=== PATIENT | male | born 1970 | race Caucasian/White ===

== ENCOUNTER 2024-08-23 12:48 | Inpatient (IN) | payer MEDICAID ==
[~2024-08-23] VITALS: Ht 165.1 cm; Wt 85.7 kg
[2024-08-23 13:25] LABS: BASOPHILS % 0.2 % (0.0-2.0); HEMATOCRIT. 32.8 % (42.0-52.0); HEMOGLOBIN. 10.9 g/dL (14.0-18.0); LYMPHOCYTES % 24.9 % (20.0-50.0); MEAN CORPUSCULAR HEMOGLOBIN 36.4 pg (28.0-32.0); MEAN CORPUSCULAR HGB CONC 33.2 g/dL (31.0-37.0); MEAN CORPUSCULAR VOLUME 109.8 fL (80.0-94.0); MONOCYTES % 7.7 % (2.0-8.0); NEUTROPHILS % 66.2 % (40.0-76.0); RED BLOOD CELL COUNT 2.98 mill/uL (4.7-6.1); RED CELL DISTRIBUTION WIDTH 15.3 % (11.6-14.6); WHITE BLOOD COUNT 6.2 x1000/uL (4.5-11.0)
[2024-08-23 13:30] LABS: CHLORIDE 108 mEq/L (98-107); POTASSIUM 6.1 mEq/L (3.5-5.1); SODIUM 133 mEq/L (136-145)
[2024-08-23 13:31] LABS: CALCIUM 8.8 mg/dL (8.7-10.4); CARBON DIOXIDE 20 mEq/L (21-32)
[2024-08-23 13:36] LABS: CREATININE 1.1 mg/dL (0.6-1.3); GLUCOSE 105 mg/dL (70-105); UREA NITROGEN BLOOD 30 mg/dL (9-23)
[2024-08-23 13:38] LABS: AMMONIA 69 uMol/L (<32); ETHANOL BLOOD < 10 mg/dL (<10)
[2024-08-23] MEDS ORDERED: FUROSEMIDE 100MG/10ML VIAL IV STA (13:47)
[2024-08-23] MEDS: CALCIUM CHLORIDE 1GM/10ML SYR IV ONE (14:17)
[2024-08-23] MEDS: INSULIN REGULAR (HUMULIN R) 1000UNITS/10ML VIAL IV ONE (14:18)
[2024-08-23 14:19] LABS: DIFFERENTIAL COMMENT 1
[2024-08-23] MEDS: DEXTROSE 50% WATER 50ML SYRINGE IV ONE (14:19)
[2024-08-23] MEDS: FUROSEMIDE 40MG/4ML VIAL IV NR (14:58)
[2024-08-23 15:05] VITALS: PULSE 67; RESP 20; O2SAT 100
[2024-08-23] MEDS: ALBUTEROL (0.083%) 2.5MG/3ML NEB HHN ONE (15:05)
[2024-08-23 15:18] LABS: MEAN PLATELET VOLUME 7.2 fl (7.4-10.4); PLATELET 108 x1000/uL (130-400)
[2024-08-23] MEDS ORDERED: DOCUSATE SODIUM 100MG CAPSULE PO PRN (16:15)
[2024-08-23] MEDS ORDERED: IPRATROPIUM/ALBUTEROL 0.5-3(2.5)MG/3ML NEB HHN PRN (16:15)
[2024-08-23] MEDS ORDERED: ACETAMINOPHEN 325MG TABLET PO PRN ×2 (16:15)
[2024-08-23] MEDS ORDERED: GUAIFENESIN 200MG/10ML SUGAR FREE UDC PO PRN (16:15)
[2024-08-23] MEDS ORDERED: CLONIDINE 0.1MG TABLET PO PRN (16:15)
[2024-08-23] MEDS ORDERED: MAGNESIUM/ALUMINUM HYDROXIDE/SIMETHICONE 30ML UDC PO PRN (16:15)
[2024-08-23] MEDS ORDERED: HYDROCODONE/ACETAMINOPHEN 5/325MG TABLET PO PRN (16:15)
[2024-08-23] MEDS ORDERED: ONDANSETRON HCL 4MG/2ML INJ IV PRN (16:15)
[2024-08-23] MEDS: SODIUM CHLORIDE 0.9% 1,000 ML IV ONE (16:23)
[2024-08-23] MEDS ORDERED: CEFTRIAXONE 500 MG in DEXTROSE 5% WATER 50 ML IV SCH (16:30)
[2024-08-23] MEDS: ENOXAPARIN 40MG/0.4ML SYR SUBCUT SCH (16:48)
[2024-08-23] MEDS: MIDODRINE HCL 5MG TABLET PO SCH (16:48)
[2024-08-23] MEDS: CEFTRIAXONE 1GM/50ML 50ML IV SCH (16:49)
[2024-08-23 16:50] LABS: CHLORIDE 108 mEq/L (98-107); POTASSIUM 4.4 mEq/L (3.5-5.1); SODIUM 136 mEq/L (136-145)
[2024-08-23 16:51] LABS: CARBON DIOXIDE 20 mEq/L (21-32)
[2024-08-23 16:52] LABS: CALCIUM 9.5 mg/dL (8.7-10.4)
[2024-08-23 16:56] LABS: CREATININE 1.1 mg/dL (0.6-1.3); GLUCOSE 106 mg/dL (70-105); IRON 186 ug/dL (65-175); UREA NITROGEN BLOOD 35 mg/dL (9-23)
[2024-08-23 16:58] LABS: ALANINE AMINOTRANSFERASE 26 IU/L (10-49); ALBUMIN 2.4 g/dL (3.2-4.8); ASPARTATE AMINOTRANSFERASE 53 IU/L (<34); TOTAL IRON BINDING CAPACITY 200 ug/dl (250-425)
[2024-08-23 16:59] LABS: AMMONIA 60 uMol/L (<32); BILIRUBIN DIRECT 1.6 mg/dL (<=3.0); BILIRUBIN TOTAL 5.3 mg/dL (0.1-1.0); PROTEIN TOTAL 7.7 g/dL (6.0-8.3)
[2024-08-23 17:01] LABS: FERRITIN 286 ng/mL (22-322); FOLIC ACID (FOLATE) SERUM > 20.00 ng/mL (>5.38)
[2024-08-23 17:05] LABS: CLARITY URINE CLEAR (CLEAR); COLOR URINE YELLOW (YELLOW); GLUCOSE URINE NEGATIVE (NEGATIVE); KETONES URINE NEGATIVE (NEGATIVE); LEUKOCYTE ESTERASE URINE NEGATIVE (NEGATIVE); NITRITE URINE NEGATIVE (NEGATIVE); OCCULT BLOOD URINE NEGATIVE (NEGATIVE); PROTEIN URINE NEGATIVE (NEGATIVE); SPECIFIC GRAVITY URINE 1.006 (1.005-1.030); UROBILINOGEN URINE 0.2 E.U./dL (0.2-1.0)
[2024-08-23 17:17] LABS: INR 1.3; PROTHROMBIN TIME 14.6 sec (9.6-11.0)
[2024-08-23 17:18] LABS: VITAMIN B12 SERUM > 2000 pg/mL (211-911)
[2024-08-23] MEDS ORDERED: OCTREOTIDE 1,000 MCG in SODIUM CHLORIDE 0.9% 98 ML IV SCH (17:30)
[2024-08-23 17:47] LABS: *AMPHETAMINES SCREEN URINE NEGATIVE (NEGATIVE); *BARBITURATES SCREEN URINE NEGATIVE (NEGATIVE); *COCAINE SCREEN URINE NEGATIVE (NEGATIVE)
[2024-08-23 17:48] LABS: *BENZODIAZEPINES SCREEN URINE NEGATIVE (NEGATIVE); CANNABINOID URINE SCREEN NEGATIVE (NEGATIVE); ECSTASY MDMA SCREEN URINE NEGATIVE (NEGATIVE); METHADONE URINE SCREEN NEGATIVE (NEGATIVE); OPIATES URINE SCREEN NEGATIVE (NEGATIVE); PHENCYCLIDINE URINE SCREEN NEGATIVE (NEGATIVE)
[2024-08-23] MEDS: AZITHROMYCIN 500MG/250ML 250 ML IV SCH (18:37)
[2024-08-23] MEDS: OCTREOTIDE 1,000 MCG in SODIUM CHLORIDE 0.9% 98 ML IV SCH (19:18)
[2024-08-23 20:23] LABS: LACTIC ACID 2.3 mmol/L (0.4-2.0)
[2024-08-23] MEDS: FUROSEMIDE 40MG/4ML VIAL IV SCH (21:00)
[2024-08-23] MEDS: CARVEDILOL 3.125 MG TABLET PO SCH (21:00)
[2024-08-24] MEDS: LACTULOSE 20G/30ML UDC PO SCH (00:47)
[2024-08-24 02:26] VITALS: BP 96/52; RESP 16; TEMP 36.33624; O2SAT 99
[2024-08-24] MEDS: FOLIC ACID/VITAMIN B COMP W-C TABLET PO SCH (09:25)
[2024-08-24 09:29] LABS: HEMATOCRIT. 28.6 % (42.0-52.0); HEMOGLOBIN. 9.7 g/dL (14.0-18.0); MEAN CORPUSCULAR VOLUME 108.8 fL (80.0-94.0); MEAN PLATELET VOLUME 7.4 fl (7.4-10.4); PLATELET 91 x1000/uL (130-400); RED BLOOD CELL COUNT 2.62 mill/uL (4.7-6.1); RED CELL DISTRIBUTION WIDTH 14.8 % (11.6-14.6); WHITE BLOOD COUNT 4.3 x1000/uL (4.5-11.0)
[2024-08-24 09:30] LABS: CHLORIDE 111 mEq/L (98-107); POTASSIUM 4.8 mEq/L (3.5-5.1); SODIUM 137 mEq/L (136-145)
[2024-08-24 09:31] LABS: CALCIUM 8.8 mg/dL (8.7-10.4); CARBON DIOXIDE 21 mEq/L (21-32)
[2024-08-24 09:32] LABS: DIFFERENTIAL COMMENT 1
[2024-08-24 09:36] LABS: GLUCOSE 109 mg/dL (70-105); TRIGLYCERIDE 46 mg/dL (0-150)
[2024-08-24 09:37] LABS: LDL CHOLESTEROL 49 mg/dL (5-100); UREA NITROGEN BLOOD 32 mg/dL (9-23)
[2024-08-24 09:38] LABS: CHOLESTEROL 102 mg/dL (<200); CREATINE KINASE 33 IU/L (46-171); HDL CHOLESTEROL < 20 mg/dL (>55)
[2024-08-24 09:41] LABS: THYROID STIMULATING HORMONE 1.16 uIU/mL (0.55-4.78)
[2024-08-24 11:28] VITALS: BP 89/52; PULSE 57; RESP 16; TEMP 36.696
[2024-08-24 11:47] LABS: PLATELET ESTIMATE SLIGHTLY DECREASED
[2024-08-24] MEDS ORDERED: FURO-152 PO (11:59)
[2024-08-24 12:00] VITALS: BP 89/57; PULSE 57; RESP 16; TEMP 36.6696; TEMP 36.66960; O2SAT 97
[2024-08-24] MEDS ORDERED: NADO20TA33 PO (12:15)
[2024-08-24] MEDS ORDERED: CHOL200059 (12:17)
[2024-08-24] MEDS ORDERED: SPIR50TA5 PO (12:17)
[2024-08-24] MEDS ORDERED: NALOXONE HCL 0.4MG/ML VIAL IV PRN (15:30)
[2024-08-24] MEDS ORDERED: CEFTRIAXONE 1GM/50ML 50ML IV SCH (17:00)
[2024-08-24] MEDS ORDERED: LACT10SO7 PO (17:06)
[2024-08-24] MEDS ORDERED: MIDO5TAB4 PO (17:06)
[2024-08-24] MEDS ORDERED: FUROSEMIDE 40MG/4ML VIAL IV SCH (17:15)
[2024-08-24] MEDS: MIDODRINE HCL 5MG TABLET PO SCH (17:23)
[2024-08-24] MEDS ORDERED: AZITHROMYCIN 500MG/250ML 250 ML IV SCH (18:00)
== END 2024-08-24 18:27 | disposition left against medical advice (07) ==
LOC: ER 12:48 → EDBEDREQ 13:19 → 5WST 17:23 → EDBEDREQ 17:26 → EDBEDREQTM 17:26 → 7EST 08-24 10:56
PROVIDERS: ADMIT Internal Medicine; ATTEND Internal Medicine
DX: K76.82 Hepatic encephalopathy (principal); D69.6 Thrombocytopenia, unspecified; J18.9 Pneumonia, unspecified organism; J90 Pleural effusion, not elsewhere classified; E87.1 Hypo-osmolality and hyponatremia; E88.09 Other disorders of plasma-protein metabolism, not elsewhere classified; E86.0 Dehydration; K76.7 Hepatorenal syndrome; D53.9 Nutritional anemia, unspecified; I95.1 Orthostatic hypotension; Z20.822 Contact with and (suspected) exposure to COVID-19; Z53.29 Procedure and treatment not carried out because of patient's decision for other reasons; I49.9 Cardiac arrhythmia, unspecified; E87.5 Hyperkalemia; E87.70 Fluid overload, unspecified; K82.8 Other specified diseases of gallbladder; Z79.899 Other long term (current) drug therapy; K74.60 Unspecified cirrhosis of liver
CPT/HCPCS: 36415; 71045; 74176; 76604; 76770; 80048; 80061; 80076; 80305; 80320; 81003; 82140; 82550; 82607; 82728; 82746; 83540; 83550; 83605; 84145; 84439; 84443; 85025; 87426; 93005; 93880; 94640; 99285; J0456; J0696; J1650; J1815; J1940; J2354; J3490; J7030; J7050; G0480